=== PATIENT | female | born 1950 | race Caucasian/White ===

== ENCOUNTER 2021-09-11 19:59 | Inpatient (IN) ==
[2021-09-11] MEDS ORDERED: Naloxone 0.4 MG/ML INJ IVP PRN (22:48)
[2021-09-11] MEDS ORDERED: Ondansetron 4 MG/2 ML VIAL IVP PRN (22:48)
[2021-09-11] MEDS ORDERED: Melatonin 3 MG TABLET PO PRN (22:48)
[2021-09-12 01:35] LABS: Basophils % 0.6 %; Eosinophils # 0.2 K/mcL (0.0-0.6); Eosinophils % 3.1 %; Hematocrit 37.8 % (35.3-44.9); Hemoglobin 12.5 g/dL (11.5-15.4); Immature Granulocytes % 0.4 % (0-4); Immature Platelets 1.8 % (1.1-6.1); Lymphocytes # 1.5 K/mcL (0.6-4.6); Lymphocytes % 27.6 %; Mean Corpuscular HGB Conc 33.1 g/dL (31.6-35.5); Mean Corpuscular Hemoglobin 31.3 pg (28.0-33.3); Mean Corpuscular Volume 94.7 fL (83.0-100.0); Mean Platelet Volume 8.9 fL (9.4-12.4); Monocytes # 0.5 K/mcL (0.0-1.3); Monocytes % 9.1 %; Neutrophils # 3.2 K/mcL (1.6-8.9); Platelet Count 102 K/mcL (140-400); Red Blood Count 3.99 M/mcL (3.82-4.97); Segmented Neutrophils % 59.2 %; White Blood Count 5.4 K/mcL (4.3-11.1)
[2021-09-12 01:43] LABS: INR 2.1; Prothrombin Time 23.1 Seconds (9.4-12.1)
[2021-09-12 01:57] LABS: Alanine Aminotransferase 10 Units/L (7-52); Albumin 2.1 g/dL (3.5-5.7); Alkaline Phosphatase 104 Units/L (34-104); Aspartate Amino Transferase 37 Units/L (13-39); BUN/Creatinine Ratio 12 (6-26); Bilirubin,Direct 1.3 mg/dL (0.0-0.2); Bilirubin,Indirect 2.7 mg/dL (0.0-1.0); Blood Urea Nitrogen 10 mg/dL (8-23); Calcium 8.3 mg/dL (8.6-10.3); Carbon Dioxide 28 mEq/L (23-29); Chloride 102 mEq/L (98-107); Glucose 137 mg/dL (70-105); Lipase 27 Units/L (11-82); Osmolality,Calculated 289 (280-300); Potassium 3.1 mEq/L (3.5-5.1); Sodium 139 mEq/L (136-145); Troponin I 0.06 ng/mL (< 0.04); eGFR For African Americans > 60 (> 60); eGFR For Non-African Americans > 60 (> 60)
[2021-09-12 02:07] LABS: Albumin/Globulin Ratio 0.5 (1.1-2.2); Globulin 4.3 g/dL (2.4-3.5); Total Protein 6.4 g/dL (6.4-8.9)
[2021-09-12 02:44] LABS: Hepatitis B Surface Antigen Nonreactive (Nonreactive)
[2021-09-12 03:13] LABS: Hepatitis B Core IgM Nonreactive (Nonreactive)
[2021-09-12 03:14] LABS: Hepatitis A Antibody IgM Nonreactive (Nonreactive); Hepatitis C Virus Antibody Nonreactive (Nonreactive)
[2021-09-12] MEDS ORDERED: 0.9 % Sodium Chloride 500 ML ONE (05:59)
[2021-09-12] MEDS: Furosemide 40 MG TABLET PO SCH (08:01)
[2021-09-12 08:59] LABS: Immature Reticulocyte % 31.1 % (11.0-38.0); Retculocyte # 0.17 M/mcL (0.05-0.10); Reticulocyte % 3.8 % (1.6-2.8)
[2021-09-12 10:48] LABS: Albumin 2.2 g/dL (3.5-5.7); Albumin/Globulin Ratio 0.5 (1.1-2.2); Alkaline Phosphatase 109 Units/L (34-104); BUN/Creatinine Ratio 11 (6-26); Bilirubin,Direct 1.7 mg/dL (0.0-0.2); Bilirubin,Indirect 2.9 mg/dL (0.0-1.0); Bilirubin,Total 4.6 mg/dL (0.3-1.0); Blood Urea Nitrogen 10 mg/dL (8-23); Calcium 8.4 mg/dL (8.6-10.3); Carbon Dioxide 29 mEq/L (23-29); Chloride 100 mEq/L (98-107); Globulin 4.4 g/dL (2.4-3.5); Glucose 128 mg/dL (70-105); Lactate Dehydrogenase 328 Units/L (140-271); Magnesium 1.4 mg/dL (1.6-2.6); Osmolality,Calculated 291 (280-300); Phosphorous 2.4 mg/dL (2.7-4.5); Potassium 3.2 mEq/L (3.5-5.1); Sodium 140 mEq/L (136-145); Total Protein 6.6 g/dL (6.4-8.9); eGFR For African Americans > 60 (> 60); eGFR For Non-African Americans > 60 (> 60)
[2021-09-12 10:58] LABS: Alanine Aminotransferase 10 Units/L (7-52); Aspartate Amino Transferase 37 Units/L (13-39)
[2021-09-12 12:34] LABS: RBC,Peritoneal Fluid < 2000 RBC/mcL
[2021-09-12 12:45] LABS: Glucose,Peritoneal Fluid 156 mg/dL (No Ref Range); LDH,Peritoneal Fluid 40 Units/L (No Ref Range); Total Protein,Peritoneal Fluid < 2.0 g/dL
[2021-09-12 14:19] LABS: Folate 8.5 ng/mL (3.0-16.0)
[2021-09-12 16:44] LABS: Appearance of Peritoneal Fl CLEAR (Clear)
[2021-09-12 17:01] LABS: Basophils,Peritoneal Fluid 0 %; Eosinophils,Peritoneal Fluid 0 %
[2021-09-13 02:47] LABS: Hematocrit 37.1 % (35.3-44.9)
[2021-09-13 02:49] LABS: Basophils % 0.4 %; Eosinophils % 3.8 %; Hemoglobin 12.4 g/dL (11.5-15.4); Immature Granulocytes % 0.4 % (0-4); Immature Platelets 2.2 % (1.1-6.1); Lymphocytes % 23.5 %; Mean Corpuscular HGB Conc 33.4 g/dL (31.6-35.5); Mean Corpuscular Hemoglobin 31.6 pg (28.0-33.3); Mean Corpuscular Volume 94.6 fL (83.0-100.0); Mean Platelet Volume 9.8 fL (9.4-12.4); Monocytes % 10.3 %; Platelet Count 116 K/mcL (140-400); Red Blood Count 3.92 M/mcL (3.82-4.97); Segmented Neutrophils % 61.6 %; White Blood Count 7.4 K/mcL (4.3-11.1)
[2021-09-13 02:50] LABS: Eosinophils # 0.3 K/mcL (0.0-0.6); Lymphocytes # 1.7 K/mcL (0.6-4.6); Monocytes # 0.8 K/mcL (0.0-1.3)
[2021-09-13 02:55] LABS: Neutrophils # 4.6 K/mcL (1.6-8.9)
[2021-09-13 03:00] LABS: Prothrombin Time 22.3 Seconds (9.4-12.1)
[2021-09-13 03:10] LABS: Alanine Aminotransferase 10 Units/L (7-52); Albumin 1.9 g/dL (3.5-5.7); Albumin/Globulin Ratio 0.5 (1.1-2.2); Alkaline Phosphatase 93 Units/L (34-104); Aspartate Amino Transferase 29 Units/L (13-39); BUN/Creatinine Ratio 12 (6-26); Bilirubin,Total 3.6 mg/dL (0.3-1.0); Blood Urea Nitrogen 11 mg/dL (8-23); Calcium 7.9 mg/dL (8.6-10.3); Carbon Dioxide 30 mEq/L (23-29); Chloride 98 mEq/L (98-107); Globulin 3.8 g/dL (2.4-3.5); Glucose 215 mg/dL (70-105); Osmolality,Calculated 288 (280-300); Potassium 3.2 mEq/L (3.5-5.1); Sodium 136 mEq/L (136-145); Total Protein 5.7 g/dL (6.4-8.9); eGFR For African Americans > 60 (> 60); eGFR For Non-African Americans > 60 (> 60)
[2021-09-13 09:26] LABS: Estimated Average Glucose 128 mg/dl; Hemoglobin A1C 6.1 %
[2021-09-13] MEDS: Furosemide 40 MG TABLET PO SCH (10:11)
[2021-09-13] MEDS ORDERED: *HR* Propofol 200 MG/20 ML VIAL IVP ONE (12:24)
[2021-09-13] MEDS ORDERED: Lidocaine -MPF 2% 5 ML VIAL ONE (12:25)
[2021-09-13] MEDS ORDERED: EPHEDrine 50 MG/ML VIAL ONE (14:16)
[2021-09-13] MEDS: Albumin 25% 25gram/100mL 25 GM/100 ML IV.SOLN IVPB SCH ×4 (15:07→19:31)
[2021-09-13] MEDS: Gabapentin 300 MG CAPSULE PO SCH ×2 (15:12→19:31)
[2021-09-13] MEDS: carvediloL 6.25 MG TABLET PO SCH (17:31)
[2021-09-13] MEDS ORDERED: Dextrose 4 GM Chewable Tablets PO PRN ×2 (19:53)
[2021-09-13] MEDS ORDERED: D5% in Water 1,000 ML IVC PRN (19:53)
[2021-09-13] MEDS ORDERED: *HR* Dextrose 50 % in Water (Syg) 50 ML SYRINGE IVP PRN (19:53)
[2021-09-13] MEDS: Insulin LISPRO 300 UNITS/3 ML VIAL SUBQ SCH (20:15)
[2021-09-14 04:15] LABS: Immature Granulocytes % 0.5 % (0-4)
[2021-09-14 04:17] LABS: Basophils % 0.7 %; Eosinophils # 0.1 K/mcL (0.0-0.6); Eosinophils % 3.4 %; Hematocrit 32.8 % (35.3-44.9); Hemoglobin 10.6 g/dL (11.5-15.4); Immature Platelets 1.9 % (1.1-6.1); Lymphocytes % 24.9 %; Mean Corpuscular HGB Conc 32.3 g/dL (31.6-35.5); Mean Corpuscular Hemoglobin 31.3 pg (28.0-33.3); Mean Corpuscular Volume 96.8 fL (83.0-100.0); Monocytes # 0.4 K/mcL (0.0-1.3); Monocytes % 10.1 %; Neutrophils # 2.5 K/mcL (1.6-8.9); Red Blood Count 3.39 M/mcL (3.82-4.97); Red Cell Distribution Width 16.5 % (11.5-14.5); Segmented Neutrophils % 60.4 %; White Blood Count 4.1 K/mcL (4.3-11.1)
[2021-09-14 04:21] LABS: INR 2.3; Platelet Count 71 K/mcL (140-400); Prothrombin Time 25.3 Seconds (9.4-12.1)
[2021-09-14 04:56] LABS: Alanine Aminotransferase 10 Units/L (7-52); Albumin 2.8 g/dL (3.5-5.7); Albumin/Globulin Ratio 1.1 (1.1-2.2); Alkaline Phosphatase 77 Units/L (34-104); Aspartate Amino Transferase 29 Units/L (13-39); BUN/Creatinine Ratio 11 (6-26); Bilirubin,Total 3.8 mg/dL (0.3-1.0); Blood Urea Nitrogen 11 mg/dL (8-23); Calcium 8.2 mg/dL (8.6-10.3); Carbon Dioxide 33 mEq/L (23-29); Chloride 99 mEq/L (98-107); Globulin 2.6 g/dL (2.4-3.5); Glucose 173 mg/dL (70-105); Osmolality,Calculated 286 (280-300); Potassium 3.4 mEq/L (3.5-5.1); Sodium 136 mEq/L (136-145); Total Protein 5.4 g/dL (6.4-8.9); eGFR For African Americans > 60 (> 60); eGFR For Non-African Americans 57 (> 60)
[2021-09-14] MEDS: Levothyroxine 25 MCG TABLET PO SCH (05:54)
[2021-09-14] MEDS: FLUoxetine 20 MG CAPSULE PO SCH (08:50)
[2021-09-14] MEDS: Mirtazapine 15 MG TABLET PO SCH (08:50)
[2021-09-14] MEDS: Furosemide 40 MG TABLET PO SCH (08:50)
[2021-09-14] MEDS: Gabapentin 300 MG CAPSULE PO SCH ×3 (08:50→20:17)
[2021-09-14] MEDS: Insulin LISPRO 300 UNITS/3 ML VIAL SUBQ SCH ×3 (08:51→16:42)
[2021-09-14] MEDS: Aspirin Enteric Coated 81 MG Tablet PO SCH (08:59)
[2021-09-14 09:05] LABS: Fluid Source for Albumin PERITONEAL FL
[2021-09-14] MEDS: carvediloL 6.25 MG TABLET PO SCH ×2 (12:47→16:37)
[2021-09-14] MEDS: Albumin 25% 25gram/100mL 25 GM/100 ML IV.SOLN IVPB SCH ×2 (16:37→22:58)
[2021-09-15 01:53] LABS: Basophils % 0.5 %; Immature Granulocytes % 0.2 % (0-4); Mean Corpuscular HGB Conc 32.7 g/dL (31.6-35.5); Mean Platelet Volume 9.6 fL (9.4-12.4)
[2021-09-15 01:54] LABS: Eosinophils # 0.1 K/mcL (0.0-0.6); Hematocrit 31.5 % (35.3-44.9); Hemoglobin 10.3 g/dL (11.5-15.4); Immature Platelets 2.4 % (1.1-6.1); Lymphocytes # 1.1 K/mcL (0.6-4.6); Lymphocytes % 24.2 %; Mean Corpuscular Hemoglobin 31.5 pg (28.0-33.3); Mean Corpuscular Volume 96.3 fL (83.0-100.0); Monocytes # 0.5 K/mcL (0.0-1.3); Monocytes % 11.2 %; Neutrophils # 2.7 K/mcL (1.6-8.9); Red Blood Count 3.27 M/mcL (3.82-4.97); Red Cell Distribution Width 16.4 % (11.5-14.5); Segmented Neutrophils % 60.9 %; White Blood Count 4.4 K/mcL (4.3-11.1)
[2021-09-15 02:05] LABS: Platelet Count 72 K/mcL (140-400)
[2021-09-15 02:09] LABS: INR 2.3; Prothrombin Time 25.7 Seconds (9.4-12.1)
[2021-09-15 02:28] LABS: Alanine Aminotransferase 8 Units/L (7-52); Albumin/Globulin Ratio 1.2 (1.1-2.2); Alkaline Phosphatase 77 Units/L (34-104); Aspartate Amino Transferase 24 Units/L (13-39); BUN/Creatinine Ratio 12 (6-26); Bilirubin,Total 2.7 mg/dL (0.3-1.0); Blood Urea Nitrogen 11 mg/dL (8-23); Calcium 8.2 mg/dL (8.6-10.3); Carbon Dioxide 30 mEq/L (23-29); Chloride 98 mEq/L (98-107); Globulin 2.6 g/dL (2.4-3.5); Glucose 231 mg/dL (70-105); Osmolality,Calculated 287 (280-300); Potassium 3.3 mEq/L (3.5-5.1); Sodium 135 mEq/L (136-145); Total Protein 5.6 g/dL (6.4-8.9); eGFR For African Americans > 60 (> 60); eGFR For Non-African Americans > 60 (> 60)
[2021-09-15] MEDS: Levothyroxine 25 MCG TABLET PO SCH (05:13)
[2021-09-15 07:52] VITALS: O2SAT 95
[2021-09-15] MEDS: Insulin LISPRO 300 UNITS/3 ML VIAL SUBQ SCH ×2 (08:07→12:05)
[2021-09-15] MEDS: carvediloL 6.25 MG TABLET PO SCH (08:09)
[2021-09-15] MEDS: Albumin 25% 25gram/100mL 25 GM/100 ML IV.SOLN IVPB SCH ×2 (08:09→15:22)
[2021-09-15] MEDS: Aspirin Enteric Coated 81 MG Tablet PO SCH ×2 (09:41→09:47)
[2021-09-15] MEDS: Furosemide 40 MG TABLET PO SCH (09:41)
[2021-09-15] MEDS: Gabapentin 300 MG CAPSULE PO SCH ×2 (09:41→15:22)
[2021-09-15] MEDS: FLUoxetine 20 MG CAPSULE PO SCH (09:41)
[2021-09-15] MEDS: Mirtazapine 15 MG TABLET PO SCH (09:42)
[2021-09-15 11:59] VITALS: BP 106/64; PULSE 65; TEMP 98.1
== END 2021-09-15 16:40 | disposition home health service (06) | DRG 432 ==
LOC: 3NENU → SUATTDRO 21:05
PROVIDERS: ADMIT Internal Medicine; ATTEND Student in an Organized Health Care Education/Training Program
PROC: ENDOEBX (2021-09-13 13:00)